=== PATIENT | male | born 1975 | race African-American/Black ===

== ENCOUNTER 2018-11-01 02:11 | Emergency (ER) | payer OTHER ==
[2018-11-01] MEDS ORDERED: NA CHLORIDE 0.9% 1,000 ML ONE (03:30)
[2018-11-01 03:48] LABS: Albumin 3.6 g/dL (3.4-5.0); Bilirubin Direct 0.2 mg/dL (0-0.2); Bilirubin Total 0.5 mg/dL (0.2-1.0); Potassium 3.4 mmol/L (3.5-5.1); Protein, Total 8.6 g/dL (6.4-8.2)
[2018-11-01 03:59] LABS: Thyroid Stimulating Hormone 1.85 uIU/mL (0.360-3.740)
--- NOTE | 2018-11-01 04:41 | EDPHYS ---
Physician Documentation [facility] Name: Samy Spencer Age: 43 yrs Sex: Male : 1975 Arrival Date: 11/01/2018 Time: 02:13 Bed 8 Private MD: ED Physician Alcides Rock HPI: 11/01 04:48 This 43 yrs old Black Male presents to ER via Ambulatory with complaints of Diarrhea. gs 04:48 The patient presents to the emergency department with diarrhea. Onset: The gs symptoms/episode began/occurred 3 day(s) ago. Possible causes: bad food exposure. Associated signs and symptoms: Pertinent negatives: dysuria, fever. Severity of symptoms: At their worst the symptoms were moderate in the emergency department the symptoms are unchanged. The patient has experienced similar episodes in the past, a few times. Historical: - Allergies: 02:31 No Known Allergies; bb - Home Meds: 02:31 valsartan-hydrochlorothiazide oral oral [Active]; bb - PMHx: 02:31 Hypertension; bb - PSHx: 02:31 None; bb - Immunization history:: Adult Immunizations up to date. - Social history:: Smoking status: Patient/guardian denies using tobacco, Patient/guardian denies using alcohol, street drugs. - Ebola Screening: : No symptoms or risks identified at this time. ROS: 04:48 All other systems are negative. gs Exam: 04:48 Head/Face: Normocephalic, atraumatic. Eyes: Pupils equal round and reactive to light, gs extra-ocular motions intact. Lids and lashes normal. Conjunctiva and sclera are non-icteric and not injected. Cornea within normal limits. Periorbital areas with no swelling, redness, or edema. ENT: Nares patent. No nasal discharge, no septal abnormalities noted. Tympanic membranes are normal and external auditory canals are clear. Oropharynx with no redness, swelling, or masses, exudates, or evidence of obstruction, uvula midline. Mucous membranes moist. Neck: Trachea midline, no thyromegaly or masses palpated, and no cervical lymphadenopathy. Supple, full range of motion without nuchal rigidity, or vertebral point tenderness. No Meningismus. Chest/axilla: Normal chest wall appearance and motion. Nontender with no deformity. No lesions are appreciated. Cardiovascular: Regular rate and rhythm with a normal S1 and S2. No gallops, murmurs, or rubs. Normal PMI, no JVD. No pulse deficits. Respiratory: Lungs have equal breath sounds bilaterally, clear to auscultation and percussion. No rales, rhonchi or wheezes noted. No increased work of breathing, no retractions or nasal flaring. Back: No spinal tenderness. No costovertebral tenderness. Full range of motion. Skin: Warm, dry with normal turgor. Normal color with no rashes, no lesions, and no evidence of cellulitis. MS/ Extremity: Pulses equal, no cyanosis. Neurovascular intact. Full, normal range of motion. Neuro: Awake and alert, GCS 15, oriented to person, place, time, and situation. Cranial nerves II-XII grossly intact. Motor strength 5/5 in all extremities. Sensory grossly intact. Cerebellar exam normal. Normal gait. 04:48 Constitutional: The patient appears alert, awake. 04:48 Abdomen/GI: Inspection: abdomen appears normal, Bowel sounds: normal, Palpation: nontender, in all quadrants, rebound tenderness, is not appreciated. Vital Signs: 02:31 BP 200 / 117; Pulse 103; Resp 16 S; Temp 98.3(O); Pulse Ox 98% on R/A; Weight 215.46 kg bb (R); Height 6 ft. 6 in. (198.12 cm) (R); Pain 0/10; 04:30 BP 151 / 94; Pulse 78; Resp 18; Pulse Ox 99% on R/A; Pain 0/10; ed1 02:31 Body Mass Index 54.89 (215.46 kg, 198.12 cm) MDM: 02:32 Patient medically screened. 04:48 Differential diagnosis: Nonspecific abd pain, viral gastroenteritis, gastroenteritis. Data reviewed: vital signs, nurses notes. Response to treatment: the patient's symptoms have markedly improved after treatment, the patient's condition has returned to base line, patient is well hydrated. and as a result, I will discharge patient. 11/01 02:35 Order name: Basic Metabolic Panel; Complete Time: 04:05 11/01 02:35 Order name: CBC with Diff 11/01 02:35 Order name: Hepatic Function; Complete Time: 04:05 11/01 02:35 Order name: Lipase; Complete Time: 04:05 11/01 02:35 Order name: TSH; Complete Time: 04:05 11/01 02:35 Order name: Ova And Parasites 11/01 02:35 Order name: IV Saline Lock; Complete Time: 02:53 11/01 02:35 Order name: Labs collected and sent; Complete Time: 02:53 11/01 02:35 Order name: Stool Culture 11/01 02:35 Order name: CDIFF Administered Medications: 03:24 Drug: NS 0.9% 1000 ml Route: IV; Rate: 1 bolus; Site: right antecubital; ed1 04:31 Follow up: IV Status: Completed infusion; IV Intake: 1000ml ed1 Disposition: 11/01/18 04:40 Discharged to Home. Impression: Diarrhea, unspecified. - Condition is Stable. - Discharge Instructions: Diarrhea, Adult. - Medication Reconciliation Form, Thank You Letter, Antibiotic Education, Prescription Opioid Use form. - Follow up: Private Physician; When: 2 - 3 days; Reason: Re-evaluation by your physician. - Notes: MAY TAKE OVER THE COUNTER IMMODIUM DIRECTED Signatures: Dispatcher [employer] EDMS Odilia Granados RN RN Selena Scott RN RN ed1 Alcides Rock MD MD Corrections: (The following items were deleted from the chart) 05:13 04:40 11/01/2018 04:40 Discharged to Home. Impression: Diarrhea, unspecified. Condition ed1 is Stable. Forms are Medication Reconciliation Form, Thank You Letter, Antibiotic Education, Prescription Opioid Use. Follow up: Private Physician; When: 2 - 3 days; Reason: Re-evaluation by your physician.
--- NOTE | 2018-11-01 04:41 | ER ---
Nurse's Notes [facility] Name: Samy Spencer Age: 43 yrs Sex: Male : 1975 Arrival Date: 11/01/2018 Time: 02:13 Bed 8 Private MD: Diagnosis: Diarrhea, unspecified Presentation: 11/01 02:15 Presenting complaint: Patient states: he has had diarrhea with cramping x 4 days stool bb was yellowish in appearance until tonight when it was dark brown. Transition of care: patient was not received from another setting of care. Onset of symptoms was October 28, 2018. Risk Assessment: Do you want to hurt yourself or someone else? Patient reports no desire to harm self or others. Initial Sepsis Screen: Does the patient meet any 2 criteria? No. Patient's initial sepsis screen is negative. Does the patient have a suspected source of infection? No. Patient's initial sepsis screen is negative. Care prior to arrival: None. 02:15 Method Of Arrival: Ambulatory bb 02:15 Acuity: CAMI 3 bb Historical: - Allergies: 02:31 No Known Allergies; bb - Home Meds: 02:31 valsartan-hydrochlorothiazide oral oral [Active]; bb - PMHx: 02:31 Hypertension; bb - PSHx: 02:31 None; bb - Immunization history:: Adult Immunizations up to date. - Social history:: Smoking status: Patient/guardian denies using tobacco, Patient/guardian denies using alcohol, street drugs. - Ebola Screening: : No symptoms or risks identified at this time. Screenin:24 Abuse screen: Denies threats or abuse. Denies injuries from another. Nutritional ed1 screening: No deficits noted. Tuberculosis screening: No symptoms or risk factors identified. Fall Risk None identified. Assessment: 03:24 General: Appears uncomfortable, Behavior is calm, cooperative. Pain: Denies pain. ed1 Neuro: Level of Consciousness is awake, alert, obeys commands, Oriented to person, place, time, situation. Cardiovascular: Denies chest pain, Heart tones S1 S2 present. Respiratory: Airway is patent Respiratory effort is even, unlabored, Respiratory pattern is regular, symmetrical, Breath sounds are clear bilaterally. GI: Abdomen is obese, Bowel sounds present X 4 quads. hyperactive in right upper quadrant and left upper quadrant Abd is soft and non tender X 4 quads. Reports diarrhea, Patient currently denies abdominal pain, nausea, vomiting. : No signs and/or symptoms were reported regarding the genitourinary system. EENT: No signs and/or symptoms were reported regarding the EENT system. Derm: Skin is intact, is healthy with good turgor, Skin is dry, Skin is normal, Skin temperature is warm. Musculoskeletal: Circulation, motion, and sensation intact. 04:30 Reassessment: Patient appears in no apparent distress at this time. Patient and/or ed1 family updated on plan of care and expected duration. Pain level reassessed. Patient is alert, oriented x 3, equal unlabored respirations, skin warm/dry/pink. Pt states "My headache is gone and I am actually starting to feel a lot better." No diarrhea noted at this time Patient states feeling better. Patient states symptoms have improved. 05:11 Reassessment: Stool sample collected and sent to lab. ed1 Vital Signs: 02:31 BP 200 / 117; Pulse 103; Resp 16 S; Temp 98.3(O); Pulse Ox 98% on R/A; Weight 215.46 kg bb (R); Height 6 ft. 6 in. (198.12 cm) (R); Pain 0/10; 04:30 BP 151 / 94; Pulse 78; Resp 18; Pulse Ox 99% on R/A; Pain 0/10; ed1 02:31 Body Mass Index 54.89 (215.46 kg, 198.12 cm) ED Course: 02:13 Patient arrived in ED. ds1 02:17 Alcides Rock MD is Attending Physician. gs 02:31 Triage completed. bb 02:31 Arm band placed on Patient placed in an exam room, on a stretcher, on pulse oximetry. bb 02:41 Selena Scott, RN is Primary Nurse. ed1 02:52 Missed attempt(s): 20 gauge in right forearm. lt1 02:53 Inserted saline lock: 22 gauge in right antecubital area, using aseptic technique. lt1 02:53 Initial lab(s) drawn, by me, sent to lab. lt1 03:24 Patient has correct armband on for positive identification. Placed in gown. Bed in low ed1 position. Call light in reach. Pulse ox on. NIBP on. 05:11 No provider procedures requiring assistance completed. IV discontinued, intact, ed1 bleeding controlled, No redness/swelling at site. Pressure dressing applied. Administered Medications: 03:24 Drug: NS 0.9% 1000 ml Route: IV; Rate: 1 bolus; Site: right antecubital; ed1 04:31 Follow up: IV Status: Completed infusion; IV Intake: 1000ml ed1 Intake: 04:31 IV: 1000ml; Total: 1000ml. ed1 Outcome: 04:40 Discharge ordered by . ragini 05:11 Discharged to home ambulatory. ed1 05:11 Condition: good 05:11 Discharge instructions given to patient, Instructed on discharge instructions, follow up and referral plans. Demonstrated understanding of instructions, follow-up care. 05:13 Patient left the ED. ed1 Signatures: Maura Quinones ds1 Odilia Granados RN RN bb Selena Scott RN RN ed1 Alcides Rock MD MD [place], [facility] Corrections: (The following items were deleted from the chart) 04:32 04:30 Reassessment: Patient appears in no apparent distress at this time. Patient ed1 and/or family updated on plan of care and expected duration. Pain level reassessed. Patient is alert, oriented x 3, equal unlabored respirations, skin warm/dry/pink. Pt states "My headache is gone and I am actually starting to feel a lot better." Patient states feeling better. Patient states symptoms have improved. ed1
== END 2018-11-01 05:13 | disposition home or self-care (01) ==
LOC: ER 02:11
DX: R19.7 Diarrhea, unspecified (principal); I10 Essential (primary) hypertension
CPT/HCPCS: 36415; 80048; 80076; 83690; 84443; 85025; 87045; 87046; 87177; 87209; 87493; J7030